=== PATIENT | male | born 1965 | race Asian ===

== ENCOUNTER 2019-10-13 18:07 | Inpatient (IN) | payer MEDICARE ==
[~2019-10-13] VITALS: Ht 180.3 cm; Wt 87.0 kg
[~2019-10-13 18:07] MED LIST: AZIT500 PO; CIPHYDOTSU OT; CIPR500 PO; HYDPAM50 PO; INSLI100I; INSUASPI SC; INSULANI; INSULINS; LEVFLO500 PO; LISI10 PO; METF500; NEOPOLHCSU AS; OXYACE5T PO; OXYC10ER PO; RXTRAM50 PO; SERT100 PO; TRAM50 PO; [UNRECOGNIZED DRUG - OTHER] SC
[2019-10-13 19:06] LABS: BASOPHILS ABSOLUTE AUTO 0.05 K/mm3 (0.00-0.23); BASOPHILS PERCENT AUTO 1 % (0-2); EOSINOPHILS ABSOLUTE AUTO 0.42 K/mm3 (0.00-0.68); EOSINOPHILS PERCENT AUTO 4 % (0-6); Hematocrit 38.5 % (37.0-53.0); Hemoglobin 11.9 g/dL (13.5-17.5); IMMATURE GRAN PERCENT AUTO 1 % (0-1); LYMPHOCYTES ABSOLUTE AUTO 2.24 K/mm3 (0.84-5.20); LYMPHOCYTES PERCENT AUTO 24 % (21-46); MONOCYTES ABSOLUTE AUTO 1.05 K/mm3 (0.16-1.47); MONOCYTES PERCENT AUTO 11 % (4-13); Mean Corpuscular HGB 28.8 pg (26.0-34.0); Mean Corpuscular HGB Conc 30.9 g/dL (31.5-36.5); Mean Corpuscular Volume 93 fL (80-100); Mean Platelet Volume 10.9 fL (9.1-12.4); NEUTROPHILS ABSOLUTE AUTO 5.64 K/mm3 (1.96-9.15); NEUTROPHILS PERCENT AUTO 59 % (41-73); Platelet Count 411 K/mm3 (150-400); RDW Coefficient Variation 14.5 % (11.7-14.2); RDW Standard Deviation 49.6 fL (35.1-46.3); Red Blood Cell Count 4.13 M/mm3 (4.30-5.90)
[2019-10-13 19:33] LABS: Albumin, Blood 2.7 g/dL (3.4-5.0); Albumin/Globulin Ratio 0.5 (0.8-1.8); Bilirubin, Total 0.3 mg/dL (0.1-1.0); Bun/Creatinine Ratio 11.9 (12.0-20.0); Calcium, Blood 8.6 mg/dL (8.5-10.1); Creatinine, Blood 4.19 mg/dL (0.60-1.20); Potassium, Blood 4.4 mmol/L (3.5-5.5); Total Protein, Blood 7.7 g/dL (6.4-8.2)
[2019-10-13] MEDS ORDERED: AMLO5 PO (20:17)
[2019-10-13] MEDS ORDERED: INSULANPEN SC (20:17)
[2019-10-13] MEDS ORDERED: CLON.3 PO (20:18)
[2019-10-13] MEDS ORDERED: Citalopram HBr40 MG PO (20:19)
[2019-10-13] MEDS ORDERED: FURO40 PO (20:20)
[2019-10-13] MEDS ORDERED: NOVOLOG100 UNIT/1 SC (20:20)
[2019-10-13] MEDS ORDERED: SODBIC650 PO (20:21)
[2019-10-13] MEDS ORDERED: ZESTORETIC 20-1 EACH PO (20:21)
[2019-10-13] MEDS ORDERED: CLON.1 PO (20:34)
[2019-10-13] MEDS ORDERED: VITAMIN D350 MCG PO (20:35)
[2019-10-13] MEDS ORDERED: Vitamin B12 PO (20:37)
[2019-10-14] MEDS ORDERED: ACET325 PO (01:57)
[2019-10-14 02:48] LABS: Hematocrit 32.7 % (37.0-53.0); Mean Corpuscular HGB Conc 30.6 g/dL (31.5-36.5); Mean Corpuscular Volume 95 fL (80-100); Mean Platelet Volume 10.5 fL (9.1-12.4); Platelet Count 308 K/mm3 (150-400); RDW Coefficient Variation 14.5 % (11.7-14.2); Red Blood Cell Count 3.45 M/mm3 (4.30-5.90); White Blood Cell Count 9.96 K/mm3 (4.00-11.30)
--- NOTE | 2019-10-14 03:09 | NUR ---
2300 TEMPORAL TEMPERATURE NOT ACCURATE; PATIENT HAS NOT BEEN FEBRILE.
[2019-10-14 03:10] LABS: Albumin, Blood 2.1 g/dL (3.4-5.0); Albumin/Globulin Ratio 0.5 (0.8-1.8); Bilirubin, Total 0.2 mg/dL (0.1-1.0); Bun/Creatinine Ratio 11.5 (12.0-20.0); Calcium, Blood 7.9 mg/dL (8.5-10.1); Creatinine, Blood 4.35 mg/dL (0.60-1.20); Magnesium, Blood 2.1 mg/dL (1.6-2.4); Phosphorus, Blood 5.5 mg/dL (2.5-4.9); Potassium, Blood 4.7 mmol/L (3.5-5.5); Total Protein, Blood 6.1 g/dL (6.4-8.2)
--- NOTE | 2019-10-14 03:10 | NUR ---
ASSUMED CARE OF PATIENT AT APPROXIMATELY 2300 FROM ED MERLENE PIERCE. PATIENT ARRIVED TO UNIT VIA STRETCHER; TRANSFER WITH ONE ASSIST FROM ED TO PCU STRETCHER. PATIENT ALERT AND ORIENTED X4; WEAKNESS IN LEGS CHRONIC; PATIENT AND PATIENT'S SPOUSE REPORTS PATIENT WEARS BRACES ON LEGS THAT CAUSE SORES; PHOTOS TAKEN AND PLACED IN CHART; WOUNDS CLEANED AND DRESSSED. PATIENT REPORTS A HEADACHE "FELT LIKE MY EYES WERE GOING TO EXPLODE"; TOLERABLE AT ADMIT; IMPROVING SINCE ARRIVAL TO UNIT; PATIENT COMPLAINED OF PAIN IN BACK "KIDNEYS"; NO MEDICATION ORDRED; CALLED DR. YORK; ORDERS RECIEVED; PATIENT REPROTS "I NORMALLY NEED LIKE 3X MORE THAN THE AVERAGE PERSON", "I THINK IT'S THE RED HAIR". PATIENT DENIES NEW NUMBNESS, TINGLING; REPORTS HE CANT FEEL WOUNDS ON FEET OR LEGS. NSR ON TELE; OXYGEN SATURATION ABOVE 90% ON ROOM AIR. NPO SINCE MIDNIGHT FOR SURGICAL CONSULT FOR PERMCATH PLACEMENT. DR. GUERRA SEEN PATIENT IN ED. PATIENT URINATES INTO URINAL; USES CAN/FURNITURE AT BASELINE; ASSISTS AT HOME WITH CARE. PATIENT ONE ASSIST WITH FWW TO BATHROOM. PIV S/L. ADMISSION COMPLETE. PATIENT HAS BEEN HYPERTENSIVE SINCE ARRIVAL; PRN HYDRALAZINE GIVEN ONCE; GOOD RESULTS. PATIENT CURRENTLY RESTING IN BED; CALL LIGHT IN REACH; BED IN LOWEST POSISTION; BED ALARM ON; WILL CONTINUE TO MONITOR AND ASSESS UNTIL END OF SHIFT.
[2019-10-14 03:13] LABS: CPK Creatine Kinase 175 U/L (39-308); Troponin I <0.015 ng/mL (0.000-0.040)
--- NOTE | 2019-10-14 06:38 | NUR ---
BLADDER SCAN AFTER VOID THIS AM WAS ABOUT 150; HYPERTENSIVE; MEDICATED PER ORDER. WILL CONTINUE TO MONITOR AND ASSESS UNTIL END OF SHIFT.
--- NOTE | 2019-10-14 09:06 | NUR ---
AM NOTE... ASSUMED CARE OF PT APROX 0700. PT IS A&Ox4. PT WAS ADMITTED FOR HYPERTENSIVE EMERGENCY. PT'S CURRENT BP IS 178/84, PT MEDICATED PER EMAR. PT DENIES CHEST PAIN BUT STATES HE HAS A "BAD HEADACHE." AND CHRONIC BACK PAIN THAT HAS INCREASED IN INTENSITY. L/S CLEAR T/O DIM IN THE BASES PT IS ON RA WITH O2 SATS >96%. PT HAS TRACE EDEMA NOTED TO HIS BLE. PT IS IN NSR IN THE 70'S-80'S. PT HAS BEEN NPO FOR PERMACATH PLACEMENT TODAY, SURGICAL PROIVDER IN THE ROOM AND PT WILL GO TO THE OR TODAY. CALL LIGHT IN REACH WILL CONTINUE TO MONITOR.
--- NOTE | 2019-10-14 10:38 | NUR ---
PT HASWOUNDS ON LEGS. DID NOT PUT ON PAS. PT ALERT AND ORIENTED ON ARRIVAL TO PACU TO GET PT READY FOR SURGERY. IV PATENT.
[2019-10-14 10:45] LABS: CPK Creatine Kinase 172 U/L (39-308); Troponin I <0.015 ng/mL (0.000-0.040)
--- NOTE | 2019-10-14 17:44 | NUR ---
SHIFT SUMMARY... NO ACUTE NEGATIVE CHANGES NOTED THIS SHIFT. PT HAD PERMACATH PLACEMENT IN THE OR TODAY, SITE IS C/D/I. PT HAD HEMODIALYSIS IN THE ROOM, PT TOLERATED THIS WELL. PT'S VS HAVE BEEN STABLE. PT'S HAS BEEN AT THE BEDSIDE MOST OF THE SHIFT. CALL LIGHT IN REACH WILL CONTINUE TO MONITOR UNTIL REPORT IS GIVEN TO ONCOMING RN
--- NOTE | 2019-10-14 19:20 | NUR ---
DURING BEDSIDE REPORT PATIENT FOUND TO BE SWEATY; FOUR BLANKETS REMOVED; AFEBRILE; PATIENT WAS SLEEPING WELL; DENIES CHILLS.
--- NOTE | 2019-10-14 23:33 | NUR ---
ASSUMED CARE OF PATIENT AT APPROXIMATELY 1915 FROM BONNIE Trujillo RN. PATIENT ALERT AND ORIENTED X4; WEAKNESS IN LEGS CHRONIC; PATIENT REPORTS PAIN IN RIGHT CHEST/NECK AREA AFTER SURGERY AND PERMCATH PLACED; "THEY MUST HAVE JERKED MY NECK"; REPORTS IV FENTANYL TAKES SOME PAIN AWAY. SURGICAL SITE WNL. PATIENT DENIES NEW NUMBNESS, TINGLING; REPORTS HE CANT FEEL WOUNDS ON FEET OR LEGS. PATIENT IS MEDICAL NO TELE STATUS. PATIENT URINATES INTO URINAL; USES CAN/FURNITURE AT BASELINE; PATIENT ONE ASSIST WITH FWW TO BATHROOM. PIV S/L. PATIENT CURRENTLY RESTING IN BED; CALL LIGHT IN REACH; BED IN LOWEST POSISTION; BED ALARM ON; WILL CONTINUE TO MONITOR AND ASSESS UNTIL END OF SHIFT.
[2019-10-15 04:26] LABS: Hemoglobin 9.9 g/dL (13.5-17.5)
[2019-10-15 04:47] LABS: Anion Gap 8 mmol/L (6-16); Blood Urea Nitrogen 37 mg/dL (8-24); CO2, Blood 26 mmol/L (21-32); Calcium, Blood 7.8 mg/dL (8.5-10.1); Chloride, Blood 105 mmol/L (98-108); Glomerular Filtration Rate 18 (60-); Glucose, Blood 210 mg/dL (70-99); Sodium, Blood 139 mmol/L (136-145)
--- NOTE | 2019-10-15 05:46 | NUR ---
PATIENT WAS HYPERTENSIVE; MEDICATED PER EMAR. VSS. WILL CONTINUE TO MONITOR AND ASSESS UNTIL END OF SHIFT.
--- NOTE | 2019-10-15 07:17 | NUR ---
ASSUMED PATIENT CARE. PATIENT ALERT AND ORIENTED, ENGAGED IN CONVERSATION WITH NURSING STAFF. VIEWED DRESSING AND SITE OF NEW DIALYSIS CATHETER, NO NEW DRAINAGE ACCORDING TO OFFGOING RN. NO SIGNS OF ACUTE DISTRESS. CALL LIGHT WITHIN REACH.
--- NOTE | 2019-10-15 18:47 | NUR ---
PATIENT NEW TO DIALYSIS TREATMENT, WENT FOR INPATIENT DIALYSIS 0900. DR. GUERRA FOLLOWING. PATIENT HYPERTENSIVE THROUGHOUT DAY, RANGING FROM 160S-190 SYSTOLIC DURING DIALYSIS. ACHS CBGS AND INSULIN GIVEN AT MEALS. TYLENOL GIVEN FOR INSERTION SITE PAIN.
--- NOTE | 2019-10-15 19:16 | NUR ---
RELINQUISHED PATIENT CARE.
--- NOTE | 2019-10-15 22:12 | NUR ---
ASSUMED CARE OF PATIENT AT APPROXIMATELY 1900 FROM KALINA Dsouza RN AND BILLY Gil RN. PATIENT ALERT AND ORIENTED X4; WEAKNESS IN LEGS CHRONIC; PATIENT REPORTS CHRONIC PAIN IN LEGS; MEDICATED WITH TYLENOL. [facility] SITE WNL. PATIENT DENIES NEW NUMBNESS, TINGLING, DIZZINESS OR NAUSEA. PATIENT IS MEDICAL NO TELE STATUS. PATIENT HYPERTENSIVE; PO CATAPRESS SCHEDULED; HYDRALAZINE HELD; WILL REASSESS BP. PATIENT URINATES INTO URINAL; USES CAN/FURNITURE AT BASELINE; PATIENT ONE ASSIST WITH FWW TO BATHROOM. PIV S/L. PATIENT CURRENTLY RESTING IN BED; CALL LIGHT IN REACH; BED IN LOWEST POSISTION; BED ALARM ON; WILL CONTINUE TO MONITOR AND ASSESS UNTIL END OF SHIFT.
[2019-10-16 03:47] LABS: Hematocrit 34.2 % (37.0-53.0); Hemoglobin 10.6 g/dL (13.5-17.5)
[2019-10-16 04:04] LABS: Albumin, Blood 2.1 g/dL (3.4-5.0); Anion Gap 5 mmol/L (6-16); Blood Urea Nitrogen 29 mg/dL (8-24); Bun/Creatinine Ratio 8.5 (12.0-20.0); CO2, Blood 31 mmol/L (21-32); Chloride, Blood 101 mmol/L (98-108); Glomerular Filtration Rate 20 (60-); Glucose, Blood 295 mg/dL (70-99); Magnesium, Blood 2.2 mg/dL (1.6-2.4); Phosphorus, Blood 5.2 mg/dL (2.5-4.9); Potassium, Blood 4.1 mmol/L (3.5-5.5); Sodium, Blood 137 mmol/L (136-145)
[2019-10-16 07:07] LABS: HBSAG SCREEN Negative (Negative); HEP A AB, IGM Negative (Negative); HEP B CORE AB, IGM Negative (Negative); HEP C VIRUS AB <0.1 (0.0-0.9)
--- NOTE | 2019-10-16 07:10 | NUR ---
PATIENT SLEPT ABOUT [address] GUERRA WAS BEDSIDE AROUND 0500; PATIENT REPORTS DR. GUERRA STATES DIALYSIS TODAY. NO OTHER ACUTE CHANGES TO REPORT. REPORT GIVEN TO DEMETRA BLUNT.
--- NOTE | 2019-10-16 13:21 | NUR ---
Patient is lying in bed and resting but easily awakens as I introduce myself to patient's spouse, Stephanie, who is bedside. Patient and Stephanie share with me about their struggles with patient's many medical issues, their spiritual belief systems and the support they have. We talk about the many things they have overcome, the amazing way they work together to get through tough days, and the thigs that fill their tanks. I listen empathically, reinforce helpful attitudes and practices, highlight some of the great attributes they have and provide pastoral counseling department chair and prayer. I will continue to remain available to patient and family.
--- NOTE | 2019-10-16 18:36 | NUR ---
SHIFT SUMMARY: PT ALERT AND ORIENTED X 4. PT CONTINUES ON MEDICAL STATUS W/O TELE FOR POSSIBLE DISCHARGE TOMORROW ONCE DIALYSIS SCHEDULE SET UP THROUGH [employer]. PT STILL AHS HIGH BP'S, SYSTOLIC RANGING FROM 140'S-180'S, HYDRALAZINE IV GIVEN ONE TIME FOR THE SHIFT PT WAS C/O CHEST PRESSURE D/T INCREASE BP, PT RELIEVED AFTER SYSTOLIC BP TREND DOWN TO 140'S. PT STAYED ON THE SYSOLIC BP 150'S FOR THE REST OF THE SHIFT. NO OTHER COMPLAINS REPORTED FOR THE SHIFT, CBGS ON THE 200'S-300'S ALL SHIFT, INSULIN COVERAGE PROVIDED. PT CURRENTLY RESTING IN BED, CALL LIGHTS WITHIN REACH. TO GIVE REPORT TO ONCOMING SHIFT.
[2019-10-17 04:12] LABS: Bun/Creatinine Ratio 8.5 (12.0-20.0); Creatinine, Blood 4.23 mg/dL (0.60-1.20); Potassium, Blood 4.3 mmol/L (3.5-5.5)
--- NOTE | 2019-10-17 05:43 | NUR ---
SHIFT SUMMARY PT SLEEPING IN ROOM COMFORTABLY AT THIS TIME. NO AUCTE CHANGES IN STATUS T/O NIGHT. PT SLEPT WELL. RESP EVEN UNLABORED ON RA/ SATS >92%. PT DENIED ANY CP OR SOB T/O NIGHT. PT DNEIED OTHER NEEDS., DENIED PAIN. CALL LIGHT IN REACH, PT USES CALL LIGHT APPROPRIATELY. WILL GIVE BEDSIDE REPORT TO ONCOMING RN.
--- NOTE | 2019-10-17 09:54 | NUR ---
PT ACCOMPANIED TO DIALYSIS ROOM VIA WHEELCHAIR, PT SYSTOLIC BP ON THE 180'S NO MEDICATION ADMINISTERED YET SINCE PT IS DOING DIALYSIS, RONNY RECHECK BP POST DIALYSIS AND ADMINISTER MEDICATION. PT CURRENTLY OUT OF THE ROOM.
[2019-10-17] MEDS ORDERED: LOSA50 PO (10:55)
--- NOTE | 2019-10-17 14:17 | NUR ---
PT DISCHARGED TODAY @1330. PT POST DIALYSIS BP SYSTOLIC STILL 180'S BP MEDS GIVEN BP WAS RECHECKED AFTER 3O MINS OF ORAL ADMINISTRATION BP TREND DOWN TO 155/87 HR: 83, NO C/O CHEST PAIN, SLIGHT CHEST PRESSURE REPORTED D/T INCREASE BP AND WAS RELIEVED BY ORAL BP MEDS. AT THE BEDSIDE DISCHARGE MEDICATION/INSTRUCTION DISCLOSED WITH THE PT AND , DISCHARGE PAPER SIGNED BY THE PATIENT. IV LINE DISCONTINUED ON RIGHT ARM, PERMCATH ON RIGHT UPPER CHEST REMAINED DRESSED AND INTACT WNL. PT WITH NO COMPLAINS PRIOR TO DISCHARGE, ALL BELONGINGS SENT WITH PATIENT, PT ACCOMPANIED BY PCT VIA WHEELCHAIR FOR TRANSPORT.
== END 2019-10-17 13:52 | disposition home or self-care (01) | DRG 673 ==
LOC: ER 18:07 → PCU 18:08
PROVIDERS: Hospitalist; Internal Medicine Nephrology; Physician Assistant; Surgery; ADMIT Internal Medicine
PROC: 02HV33Z Insertion of Infusion Device into Superior Vena Cava, Percutaneous Approach (ICD-10-PCS; 2019-10-14)
PROC: B5181ZA Fluoroscopy of Superior Vena Cava using Low Osmolar Contrast, Guidance (ICD-10-PCS; 2019-10-14)
PROC: 5A1D70Z Performance of Urinary Filtration, Intermittent, Less than 6 Hours Per Day (ICD-10-PCS; 2019-10-14)
PROC: 0JH63XZ Insertion of Tunneled Vascular Access Device into Chest Subcutaneous Tissue and Fascia, Percutaneous Approach (ICD-10-PCS; principal; 2019-10-14 09:30)
DX: I12.0 Hypertensive chronic kidney disease with stage 5 chronic kidney disease or end stage renal disease (principal); N18.6 End stage renal disease; I16.1 Hypertensive emergency; N25.81 Secondary hyperparathyroidism of renal origin; N17.9 Acute kidney failure, unspecified; E10.40 Type 1 diabetes mellitus with diabetic neuropathy, unspecified; E88.09 Other disorders of plasma-protein metabolism, not elsewhere classified; D63.8 Anemia in other chronic diseases classified elsewhere; Z99.2 Dependence on renal dialysis
CPT/HCPCS: 36415; 71046; 77001; 80048; 80053; 80069; 80074; 82550; 82947; 83690; 83735; 84100; 84484; 85014; 85018; 85025; 85027; 86317; 93005; 93010; 99285-25; A9270; A9270-GY; C1750; J0360; J0690; J0881; J1100; J1644; J2405; J2704; J2765; J3010

== ENCOUNTER 2019-11-07 07:23 | Day surgery (SDC) | payer MEDICARE, OTHER ==
[~2019-11-07] VITALS: Ht 180.3 cm; Wt 89.6 kg
[~2019-11-07 07:23] MED LIST changes: +ACET325 PO; +AMLO5 PO; +CLON.1 PO; +CLON.3 PO; +Citalopram HBr40 MG PO; +FURO40 PO; +INSULANPEN SC; +LOSA50 PO; +NOVOLOG100 UNIT/1 SC; +SODBIC650 PO; +VITAMIN D350 MCG PO; +Vitamin B12 PO; +ZESTORETIC 20-1 EACH PO
--- NOTE | 2019-11-07 08:20 | NUR ---
History, Chart, Medications and Allergies reviewed before start of procedure. Lungs clear T/O to Auscultation. Patient confirms NPO status and agrees with scheduled surgery. Pre-Op teaching done. Pt verbalizes understanding.
--- NOTE | 2019-11-07 12:18 | NUR ---
Discharge instructions reviewed with patient. Patient verbalizes understanding. Copy given to patient to take home. Discharged via wheelchair to private car for ride home. REVEIWED DISCHARGE INSTRUCTIONS [facility] PATIENT.
== END 2019-11-07 22:50 | disposition home or self-care (01) ==
LOC: ORSCMMR 07:23 → ORD 10:00 → ORSCMMR 10:00
PROVIDERS: Surgery
PROC: 05HN33Z Insertion of Infusion Device into Left Internal Jugular Vein, Percutaneous Approach (ICD-10-PCS; principal; 2019-11-07 09:00)
PROC: B5141ZA Fluoroscopy of Left Jugular Veins using Low Osmolar Contrast, Guidance (ICD-10-PCS; principal; 2019-11-07 09:00)
DX: T82.41XA Breakdown (mechanical) of vascular dialysis catheter, initial encounter (principal); N18.6 End stage renal disease; I10 Essential (primary) hypertension; E11.9 Type 2 diabetes mellitus without complications; Z79.4 Long term (current) use of insulin; Z79.899 Other long term (current) drug therapy
CPT/HCPCS: 36415; 77001; 82947; 84132; C1750; J0690; J1644; J2250; J2704; J3010; J7030

== ENCOUNTER 2022-01-22 21:32 | Inpatient (IN) | payer MEDICARE ==
[~2022-01-22] VITALS: Ht 180.3 cm; Wt 88.7 kg
[~2022-01-22 21:32] MED LIST changes: +BASAGLAR K100 UNIT/1 SC; +BIOTIN5 MG PO; +Calcium Acetat667 MG PO; +Celexa40 MG PO; +GABA100 PO; -INSULANPEN SC; +Ropinirole HCl0.5 MG PO
[2022-01-22 22:35] LABS: BASOPHILS ABSOLUTE AUTO 0.11 K/mm3 (0.00-0.23); BASOPHILS PERCENT AUTO 0 % (0-2); EOSINOPHILS ABSOLUTE AUTO 0.01 K/mm3 (0.00-0.68); EOSINOPHILS PERCENT AUTO 0 % (0-6); Hematocrit 34.6 % (37.0-53.0); Hemoglobin 10.9 g/dL (13.5-17.5); IMMATURE GRAN ABSOLUTE AUTO 0.63 K/mm3 (0.00-0.10); IMMATURE GRAN PERCENT AUTO 2 % (0-1); LYMPHOCYTES ABSOLUTE AUTO 0.36 K/mm3 (0.84-5.20); LYMPHOCYTES PERCENT AUTO 1 % (21-46); MONOCYTES PERCENT AUTO 1 % (4-13); Mean Corpuscular HGB 29.4 pg (26.0-34.0); Mean Corpuscular HGB Conc 31.5 g/dL (31.5-36.5); Mean Corpuscular Volume 93 fL (80-100); Mean Platelet Volume 11.3 fL (9.1-12.4); NEUTROPHILS ABSOLUTE AUTO 34.03 K/mm3 (1.96-9.15); NEUTROPHILS PERCENT AUTO 96 % (41-73); Platelet Count 352 K/mm3 (150-400); RDW Coefficient Variation 12.7 % (11.7-14.2); RDW Standard Deviation 43.7 fL (35.1-46.3); Red Blood Cell Count 3.71 M/mm3 (4.30-5.90); White Blood Cell Count 35.64 K/mm3 (4.00-11.30)
[2022-01-22 22:48] LABS: Albumin, Blood 2.3 g/dL (3.4-5.0); Albumin/Globulin Ratio 0.4 (0.8-1.8); Bilirubin, Total 0.4 mg/dL (0.1-1.0); Creatinine, Blood 7.05 mg/dL (0.60-1.20); Globulin, Blood 5.4 g/dL (2.2-4.0); Potassium, Blood 4.6 mmol/L (3.5-5.5); Total Protein, Blood 7.7 g/dL (6.4-8.2)
[2022-01-22] MEDS ORDERED: SERT100 (23:07)
--- NOTE | 2022-01-23 01:57 | NUR ---
ADMISSION: PATIENT IS RECIEVED FROM ER VIA STRETCHER. ABLE TO AMBULATE TP BED FROM STRETCHER. VSS, NO REPORTS OF PAIN AT THIS TIME. NS IS INFUSING AT 100 ML/HR. PATIENT OS ORIENTED TO ROOM AND CALL GAVIN.
[2022-01-23 02:53] LABS: BASOPHILS ABSOLUTE AUTO 0.07 K/mm3 (0.00-0.23); BASOPHILS PERCENT AUTO 0 % (0-2); EOSINOPHILS PERCENT AUTO 0 % (0-6); Hematocrit 34.7 % (37.0-53.0); IMMATURE GRAN ABSOLUTE AUTO 0.12 K/mm3 (0.00-0.10); IMMATURE GRAN PERCENT AUTO 1 % (0-1); LYMPHOCYTES ABSOLUTE AUTO 0.43 K/mm3 (0.84-5.20); LYMPHOCYTES PERCENT AUTO 2 % (21-46); MONOCYTES ABSOLUTE AUTO 0.08 K/mm3 (0.16-1.47); MONOCYTES PERCENT AUTO 0 % (4-13); Mean Corpuscular HGB 29.8 pg (26.0-34.0); Mean Corpuscular HGB Conc 31.7 g/dL (31.5-36.5); Mean Corpuscular Volume 94 fL (80-100); Mean Platelet Volume 10.8 fL (9.1-12.4); NEUTROPHILS ABSOLUTE AUTO 22.68 K/mm3 (1.96-9.15); NEUTROPHILS PERCENT AUTO 97 % (41-73); Platelet Count 330 K/mm3 (150-400); RDW Coefficient Variation 12.7 % (11.7-14.2); RDW Standard Deviation 43.8 fL (35.1-46.3); Red Blood Cell Count 3.69 M/mm3 (4.30-5.90); White Blood Cell Count 23.38 K/mm3 (4.00-11.30)
[2022-01-23 03:12] LABS: Albumin, Blood 2.3 g/dL (3.4-5.0); Albumin/Globulin Ratio 0.4 (0.8-1.8); Bilirubin, Total 0.5 mg/dL (0.1-1.0); Bun/Creatinine Ratio 6.8 (12.0-20.0); Calcium, Blood 9.6 mg/dL (8.5-10.1); Creatinine, Blood 7.34 mg/dL (0.60-1.20); Globulin, Blood 5.4 g/dL (2.2-4.0); Potassium, Blood 4.8 mmol/L (3.5-5.5); Total Protein, Blood 7.7 g/dL (6.4-8.2)
[2022-01-23 05:26] LABS: SARS-Cov-2 (COVID-19) PCR, MMC NEGATIVE (NEGATIVE)
--- NOTE | 2022-01-23 06:26 | NUR ---
SHIFT SUMMARY: PATIENT SCORED A 4 ON VIEWS FOR A TEMP. OF 102.9, BP 163/68, HR 108, SAT IS 87% ON RA. PATIENT REPORTS SOB, 2L APPLIED SAT COMES UP TO 93%. DR YORK WAS NOTIFIED OF VIEWS SCORE. BLOOD CULTURES HAD BEEN DRAW AT 0141 AND IVF ARE INFUSING. NO NEW ORDERS OBTAINED, CONTINUE TO MONITOR ZOFRAN WAS ALSO GIVEN FOR DRY HEAVES. PATIENT DID NOT VOMIT. VS ARE BEING MONITORED Q2H. COVID SWAB IS NEGATIVE. WOUND PHOTOS WERE TAKEN AND IN THE CHART. WOUND WAS WASHED AND NON-ADHERANT DRSG AND KERLIX WERE APPLIED.
--- NOTE | 2022-01-23 09:17 | NUR ---
BLOOD SUGAR > 350 DR. ACEVEDO NOTIFIED IN PERSON. NO NEW ORDERS. WCTM.
[2022-01-23 13:00] LABS: Vancomycin, Random 13.6 ug/mL
--- NOTE | 2022-01-23 17:27 | NUR ---
Shift Summary A/Ox3, c/o ALDRICH and R hip pain. Medicated with PRN tylenol and lidocaine patch. Had bm today. Patient very unsteady on feet. Discussed med reconciliation with Dr. Leslie and Dr. Ayon against hospital meds. Dr. Samson consulted on R heel wound (see note); wound culture ordered and obtained by Dr. Samson. Had dialysis today. Blood sugars have been somewhat elevated as well as blood pressures. Discussed with RE insulin use, reports averaging 10-15 units with meals depending on how much was eaten, but no concrete regimen. Truman has been dry heaving all day and feeling nauseous, medicated with PRN antiemetics without good effect. 1p gaitbelt and FWW for transfers.
--- NOTE | 2022-01-24 03:39 | NUR ---
PT A/O X 4. BP ELEVATED. MEDICATED PER EMAR. PT HAD CONSULT WITH DR. LITTLE ABOUT R BKA AND AGREED TO PROCEED. SURGERY PLANNED FOR 01/24/22. PT IS NPO. PT HAD C/O NAUSEA AND WAS DRY HEAVING. MEDICATED WITH PHENERGREN 25MG. NAUSEA RESOLVED. PT PLEASANT, CALM, COOPERATIVE TO CARE. PT CURRENTLY RESTING WITH CALL LIGHT WITHIN REACH AND BED IN LOW POSITION.
[2022-01-24 04:52] LABS: Hemoglobin 10.8 g/dL (13.5-17.5)
[2022-01-24 05:19] LABS: Albumin, Blood 1.9 g/dL (3.4-5.0); Anion Gap 9 mmol/L (6-16); Blood Urea Nitrogen 43 mg/dL (8-24); Bun/Creatinine Ratio 6.1 (12.0-20.0); CO2, Blood 34 mmol/L (21-32); Calcium, Blood 9.8 mg/dL (8.5-10.1); Chloride, Blood 94 mmol/L (98-108); Creatinine, Blood 7.03 mg/dL (0.60-1.20); Glomerular Filtration Rate 9 (60-); Glucose, Blood 235 mg/dL (70-99); Magnesium, Blood 2.6 mg/dL (1.6-2.4); Phosphorus, Blood 4.9 mg/dL (2.5-4.9); Potassium, Blood 4.5 mmol/L (3.5-5.5); Sodium, Blood 137 mmol/L (136-145)
--- NOTE | 2022-01-24 05:56 | NUR ---
LAB REPORTS POSITIVE BLOOD CULTURE. GRAM + COCCI IN CHAIN. PHARMACY NOTIFIED THAT PATIENT IS ON ZOSYN AND REPORTS COVERAGE IS SUFFICIENT. MEDIA ASSISTANT NOTIFIED. FLACA.
--- NOTE | 2022-01-24 06:04 | NUR ---
STUDENT NOTES AND ASSESSMENT REVIEWED AND IN AGREEMENT.
--- NOTE | 2022-01-24 08:25 | NUR ---
SHIFT SUMMARY PT WITH SPOUSE NIGHAT AT BEDSIDE. KEVIN C/O CHRONIC BACK PAIN, AND RIGHT HIP PAIN. APPLIED LIDOCAINE PATCH TO RIGHT HIP. RN REVIEWED WITH PT AND PT'S SPOUSE THE PLAN FOR SURGICAL INTERVENTION TODAY. SPOUSE/PT IN AGREEMENT. PT NPO. PT AMBULATES WITH SBA AND FWW TO BATHROOM TO VOID INDEPENDENTLY.
--- NOTE | 2022-01-24 08:43 | NUR ---
pt was transported in medical bed to OR by MERLENE HUDSON at 0843. He was accompanied by spouse Stephanie.
--- NOTE | 2022-01-24 09:43 | NUR ---
01/24/22 0943 Radha Sierra PT ON SCHEDULED ANTIBIOTICS AND RECIEVED PRIOR TO ARRIVAL TO OR.
--- NOTE | 2022-01-24 11:57 | NUR ---
PT ARRIVED ON SURGICAL FLOOR AT 1145. PT WAS TRANSFERED FROM PACU ON MEDICAL BED WHICH STAYED IN ROOM WITH PT. PT WAS RESTING DURING TRANSFER. PT BELONGINS WERE PLACED IN PT CHAIR AND PT WAS INFORMED WHERE THEY WERE PLACED. PT STATED HE WAS IN NO PAIN AT THE MOMENT. PT APPEARED CALM AND WAS MAKING JOKES. PT WAR ORIENTED TO ROOM AND GIVEN CALL LIGHT.
[2022-01-24 12:35] LABS: Vancomycin, Random 24.3 ug/mL
--- NOTE | 2022-01-24 14:20 | NUR ---
PT SATURATED BED LINNEN WITH PERSPIRATION SO RACHAEL AND I DID A COMPLETE BED CHANGE. PT WAS BOOSTED UP IN BED AND PILLOWS PLACED UNDER BOTH LEGS.
--- NOTE | 2022-01-24 18:00 | NUR ---
SHIFT SUMMARY PT IS POD#0 FOR R BKA. PT HAS GAUZE AND STUMP SOCK IN PLACE. DRESSING APPEARS C/D/I. PT IS A&OX3. PT IS POSITIVE FOR MRSA AND ON CONTACT PRECAUTIONS. PT HAS NOT VOIDED SINCE COMING TO THE FLOOR. PT WAS BLADDER SCANNED AT 1655 AND 88ML OF URINE WAS NOTED. PT ENCOURAGED TO DRINK FLUIDS AND USE URINAL. PT HAS QUATER SIZE WOUND ON L HEEL THAT PT'S STATES WAS THERE BEFORE ADMISSION. PICTURE TAKEN AND PLACED IN PT CHART. FOAM HEEL DRESSING PLACED AND HEEL FLOATED ON TWO PILLOWS. PT HAS BEEN RESTING WITH CALL LIGHT IN REACH.
[2022-01-25 04:10] LABS: BASOPHILS ABSOLUTE AUTO 0.04 K/mm3 (0.00-0.23); BASOPHILS PERCENT AUTO 0 % (0-2); EOSINOPHILS ABSOLUTE AUTO 0.04 K/mm3 (0.00-0.68); EOSINOPHILS PERCENT AUTO 0 % (0-6); Hemoglobin 10.8 g/dL (13.5-17.5); IMMATURE GRAN ABSOLUTE AUTO 0.26 K/mm3 (0.00-0.10); IMMATURE GRAN PERCENT AUTO 1 % (0-1); LYMPHOCYTES ABSOLUTE AUTO 1.34 K/mm3 (0.84-5.20); LYMPHOCYTES PERCENT AUTO 6 % (21-46); MONOCYTES ABSOLUTE AUTO 1.07 K/mm3 (0.16-1.47); MONOCYTES PERCENT AUTO 5 % (4-13); Mean Corpuscular HGB 29.3 pg (26.0-34.0); Mean Corpuscular HGB Conc 30.9 g/dL (31.5-36.5); Mean Corpuscular Volume 95 fL (80-100); Mean Platelet Volume 12.1 fL (9.1-12.4); NEUTROPHILS ABSOLUTE AUTO 20.07 K/mm3 (1.96-9.15); NEUTROPHILS PERCENT AUTO 88 % (41-73); Platelet Count 253 K/mm3 (150-400); RDW Standard Deviation 45.2 fL (35.1-46.3); Red Blood Cell Count 3.69 M/mm3 (4.30-5.90); White Blood Cell Count 22.82 K/mm3 (4.00-11.30)
[2022-01-25 04:44] LABS: Albumin, Blood 1.7 g/dL (3.4-5.0); Anion Gap 10 mmol/L (6-16); Blood Urea Nitrogen 59 mg/dL (8-24); Bun/Creatinine Ratio 6.8 (12.0-20.0); CO2, Blood 31 mmol/L (21-32); Calcium, Blood 9.9 mg/dL (8.5-10.1); Chloride, Blood 94 mmol/L (98-108); Creatinine, Blood 8.66 mg/dL (0.60-1.20); Glomerular Filtration Rate 7 (60-); Glucose, Blood 366 mg/dL (70-99); Phosphorus, Blood 5.9 mg/dL (2.5-4.9); Potassium, Blood 5.3 mmol/L (3.5-5.5); Sodium, Blood 135 mmol/L (136-145)
--- NOTE | 2022-01-25 05:50 | NUR ---
SHIFT SUMMARY NO ACUTE CHANGES TO REPORT THIS SHIFT. POD 0 RBKA, GAUZE AND STUMP SOCK IN PLACE C/D/I. PT HAS HAD NO COMPLAINTS OF PAIN, AND HAS DENIED NEEDS WHEN ASKED. PT HAS BEEN SLEEPY MOST OF THE SHIFT, BUT EASILY AWAKES AND CONVERSES WITH ME. PT SEEMS TO BE COPING WITH HUMOR AT THIS TIME, AND HAS BEEN ABLE TO LOOK AT HIS STUMP. POST OP VITALS STABLE. ESRD, PT HAS NOT VOIDED THIS SHIFT AND REPORTS THAT HE PRODUCES VERY LITTLE URINE. HD IS MWF. CREAT 8.66 WITH AM LABS, DR. GUERRA IS AWARE WITH NO NEW ORDERS GIVEN. PT RESTING AT THIS TIME. BED IN LOWEST POSITION, CALL LIGHT WITHIN REACH.
[2022-01-25 12:31] LABS: Vancomycin, Random 15.3 ug/mL
--- NOTE | 2022-01-25 15:34 | NUR ---
SHIFT SUMMARY PT A&OX4, VSS/RA, CBGS COV PER EMAR, CELY PO, ESRD/DIALYSIS TODAY/NO VOID THIS SHIFT, REPOSITIONS SELF WELL IN BED. PHYSICAL THERAPY EVAL'D TODAY, WAS PRESENT. POD1 RBKA, DRESSING CHANGED BY SURGEON:GAUZE/ADILENE/STUMP SOCK CDI, ELEVATED. WILL REPORT TO ONCOMING NOC RN. .
--- NOTE | 2022-01-25 21:49 | NUR ---
CALLED [employer]ED [employer] CHIEF MD DUE TO PT BLOOD PRESSURE BEING 196/99 AND PULSE OF 99. MD ORDERED LABETELOL IV 10MG Q4H PRN W/ SYSTOLIC ABOVE 180. TELE ORDER PLACED PER PROTOCOL.
[2022-01-26 03:49] LABS: BASOPHILS ABSOLUTE AUTO 0.05 K/mm3 (0.00-0.23); BASOPHILS PERCENT AUTO 0 % (0-2); EOSINOPHILS ABSOLUTE AUTO 0.04 K/mm3 (0.00-0.68); EOSINOPHILS PERCENT AUTO 0 % (0-6); Hematocrit 34.5 % (37.0-53.0); Hemoglobin 10.7 g/dL (13.5-17.5); IMMATURE GRAN ABSOLUTE AUTO 0.28 K/mm3 (0.00-0.10); IMMATURE GRAN PERCENT AUTO 1 % (0-1); LYMPHOCYTES ABSOLUTE AUTO 1.65 K/mm3 (0.84-5.20); LYMPHOCYTES PERCENT AUTO 8 % (21-46); MONOCYTES ABSOLUTE AUTO 1.34 K/mm3 (0.16-1.47); MONOCYTES PERCENT AUTO 7 % (4-13); Mean Corpuscular HGB 29.3 pg (26.0-34.0); Mean Corpuscular Volume 95 fL (80-100); Mean Platelet Volume 11.9 fL (9.1-12.4); NEUTROPHILS ABSOLUTE AUTO 16.44 K/mm3 (1.96-9.15); NEUTROPHILS PERCENT AUTO 83 % (41-73); NRBC ABSOLUTE 0.03 K/mm3 (0.00-0.02); NRBC Auto 0.2 /100 WBC (0.0-0.2); Platelet Count 243 K/mm3 (150-400); RDW Coefficient Variation 13.1 % (11.7-14.2); RDW Standard Deviation 45.7 fL (35.1-46.3); Red Blood Cell Count 3.65 M/mm3 (4.30-5.90)
[2022-01-26 04:14] LABS: Albumin, Blood 1.8 g/dL (3.4-5.0); Anion Gap 10 mmol/L (6-16); Blood Urea Nitrogen 46 mg/dL (8-24); Bun/Creatinine Ratio 6.4 (12.0-20.0); CO2, Blood 30 mmol/L (21-32); Chloride, Blood 95 mmol/L (98-108); Creatinine, Blood 7.19 mg/dL (0.60-1.20); Glomerular Filtration Rate 8 (60-); Glucose, Blood 264 mg/dL (70-99); Magnesium, Blood 2.3 mg/dL (1.6-2.4); Potassium, Blood 4.4 mmol/L (3.5-5.5); Sodium, Blood 135 mmol/L (136-145)
--- NOTE | 2022-01-26 04:23 | NUR ---
SHIFT SUMMARY A/O X3. PT HAD HYPERTENSION AND INCREASED HR AT THE BEGINING OF THE SHIFT, ORDER GIVEN BY TO GIVE PRN LABETELOL. GIVEN AT THAT TIME, PT BP AND HR HAS BEEN STABLE SINCE. PT REPORTS LITTLE TO NO PAIN. BEDREST THROUGHOUT THE NIGHT. 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 PLEASANT AND COOPERATIVE THROUGHOUT SHIFT. WILL CONTINUE TO MONITOR AND REPORT TO ONCOMING RN.
[2022-01-26 09:39] LABS: Base Excess Venous 6.6 mmol/L; Bicarbonate Venous 30.1 mmol/L (24.0-30.0); PCO2 Venous 37.2 mmHg (38-42); pH Blood Venous 7.51 (7.34-7.37)
--- NOTE | 2022-01-26 14:08 | NUR ---
TRANSFER NOTE PATIENT LETHARGIC THROUGHOUT SHIFT. OPENS EYES TO VERBAL STIMULI. PROGRESSEVILY MORE UNRESPONSIVE THROUGH MORNING. UNABLE TO RECOGNIZE FAMILY MEMBER. PUPILS CONTRICTED AND SLUGGISH. BILAT ARMS WEAK AND FLACID AT TIMES. ATTEMPTED TO GET OUT OF BED TWICE. WAS DISORIENTED AND UNABLE TO SAY WHAT HE WANTED. VSS WITH ELEVATED BP. VBG UNCONCERNING. DR ACEVEDO GAVE ORDER TO TRANSFER TO ICU WITH CONCERN FOR BACTERIAL EMBOLI FROM HEART VALVE TO BRAIN. CALLED REPORT TO HOT STICK MAN. TRANSPORTED PATIENT ON BED TO ICU RM 9 AT 1400.
--- NOTE | 2022-01-26 14:30 | NUR ---
INITIAL ASSESSMENT PATIENT LETHARGIC. PATIENT RESPONDS TO VERBAL STIMULI. PATIENT ORIENTED TO SELF, AND FOLLOWING SIMPLE COMMANDS. PATIENT SPEAKS WITH EYES CLOSED BUT OPENS THEM WHEN ASKED. PATIENT CANTANKEROUS. PUPILS SLUGGISH TO LIGHT. R BKA NOTED. PATIENT WEAK BUT ABLE TO MOVE ALL EXTREMITIES. PAIN IN R BKA. PATIENT AFEBRILE. PATIENT SATTING 90% AND GREATER ON 2 L NC. LUNGS CLEAR T/O. PATIENT IN SR, HR IN THE 90S. SBP 170S TO 180S. MOUTH TWITCHING. LAST BM NOTED ON 01/23. ATTENDS IN PLACE FOR INCONTINENCE; PATIENT OLIGURIC. DIALYSIS PATIENT. FISTULA TO L LOWER ARM- + BRUIT AND THRILL NOTED. PRESSURE SORE NOTED TO L HEEL; MEPILEX IN PLACE. TOENAILS ON LEFT FOOT BLACK. PATIENT SLIGHTLY DIAPHORETIC. IV FLUSHED AND SALINE LOCKED. PATIENT ORIENTED TO UNIT, ROOM AND CALL LIGHT. BED LOW, CALL LIGHT IN REACH, BED ALARM ON.
--- NOTE | 2022-01-26 14:37 | NUR ---
DR. MAURICE DORSEY'D FOR PATIENT TO BE TAKEN TO MRI WITHOUT HEAVY LIFT RIGGER. PATIENT BEING TAKEN TO MRI BY TRANSPORTER NOW.
--- NOTE | 2022-01-26 15:33 | NUR ---
, NIGHAT, CALLED AND CONSENTED TO PATIENT TRANSFER. ZACHERY LONGO RN WITNESSED.
[2022-01-26 16:04] LABS: SARS-Cov-2 (COVID-19) PCR, MMC NEGATIVE (NEGATIVE)
--- NOTE | 2022-01-26 16:30 | NUR ---
SHIFT SUMMARY PATIENT REMAINED A AND O X 2, CANTANKEROUS. PATIENT REMAINED LETHARGIC. PATIENT GIVEN PRN MEDICATIONS TO HELP WITH PAIN IN R BKA. PATIENT REMAINED ON 2 L NC. PATIENT REMAINED IN SR, HR 70S TO 90S. SBP 1-TEENS TO 180S. NO BM THIS SHIFT. PATIENT SWALLOWED WATER AND PILLS WITHOUT DIFFICULTY. ATTENDS IN PLACE FOR INCONTINENCE; OLIGURIC IS DIALYSIS PATIENT. NO CHANGES TO SKIN NOTED. HEAD MRI WITHOUT CONTRAST PERFORMED THIS SHIFT. PATIENT TRANSFERRING TO [facility]. CAME TO SEE PATIENT AND INSPECTOR AIDE BELONGINGS INCLUDING IPAD AND CELL PHONE. PATIENT BEING TAKEN OUT BY TRANSPORT TEAM AT THIS TIME.
== END 2022-01-26 16:30 | disposition short-term general hospital (02) | DRG 853 ==
LOC: ER 21:32 → MEDS 01-23 00:29 → SURS 01-24 11:31 → ICUW 01-26 13:09
PROVIDERS: Emergency Medicine; Family Medicine; Internal Medicine Nephrology; Student in an Organized Health Care Education/Training Program; ADMIT Internal Medicine
PROC: 0JBQ0ZZ Excision of Right Foot Subcutaneous Tissue and Fascia, Open Approach (ICD-10-PCS; principal; 2022-01-23)
PROC: 3E03329 Introduction of Other Anti-infective into Peripheral Vein, Percutaneous Approach (ICD-10-PCS; 2022-01-23)
PROC: 0Y6H0Z3 Detachment at Right Lower Leg, Low, Open Approach (ICD-10-PCS; 2022-01-24)
DX: A41.02 Sepsis due to Methicillin resistant Staphylococcus aureus (principal); J18.9 Pneumonia, unspecified organism; N18.6 End stage renal disease; R65.21 Severe sepsis with septic shock; I63.9 Cerebral infarction, unspecified; N25.81 Secondary hyperparathyroidism of renal origin; I12.0 Hypertensive chronic kidney disease with stage 5 chronic kidney disease or end stage renal disease; M86.8X7 Other osteomyelitis, ankle and foot; L03.115 Cellulitis of right lower limb; E87.2 Acidosis; E87.1 Hypo-osmolality and hyponatremia; Z20.822 Contact with and (suspected) exposure to COVID-19; E10.621 Type 1 diabetes mellitus with foot ulcer; E10.40 Type 1 diabetes mellitus with diabetic neuropathy, unspecified; E10.65 Type 1 diabetes mellitus with hyperglycemia; E10.69 Type 1 diabetes mellitus with other specified complication; E10.22 Type 1 diabetes mellitus with diabetic chronic kidney disease; D63.1 Anemia in chronic kidney disease; F17.220 Nicotine dependence, chewing tobacco, uncomplicated; L97.519 Non-pressure chronic ulcer of other part of right foot with unspecified severity; F41.8 Other specified anxiety disorders; L97.529 Non-pressure chronic ulcer of other part of left foot with unspecified severity; Z90.49 Acquired absence of other specified parts of digestive tract; Z98.890 Other specified postprocedural states; Z99.2 Dependence on renal dialysis; Z88.6 Allergy status to analgesic agent; Z79.4 Long term (current) use of insulin; Z79.899 Other long term (current) drug therapy
CPT/HCPCS: 36415; 70551; 71045; 73590; 73620; 80053; 80069; 80202; 82803; 82947; 83036; 83605; 83735; 84145; 85014; 85018; 85025; 85651; 86141; 87040; 87070; 87075; 87076; 87077; 87147; 87185; 87186; 87205; 88307; 93306; 93925; 96365; 96375; 97161; 97530-CQ; 99284-25; A9270; J0696; J1100; J1644; J1815; J1956; J2250; J2405; J2543; J2704; J3010; J3370; J7030; J7040; J7060; U0004